=== PATIENT | male | born 1980 ===

== ENCOUNTER 2020-09-28 22:41 | Emergency (ER) | payer BC, SELFPAY ==
[2020-09-28 22:46] VITALS: BP 140/83; PULSE 93; RESP 20; TEMP 36.7; O2SAT 100; BMI 38.9
--- NOTE | 2020-09-28 23:05 | ECG_ITS ---
Test Reason : TINGLING Blood Pressure : / mmHG Vent. Rate : 085 BPM Atrial Rate : 085 BPM P-R Int : 160 ms QRS Dur : 096 ms QT Int : 350 ms P-R-T Axes : 013 040 021 degrees QTc Int : 416 ms Normal sinus rhythm Normal ECG When compared to the previous EKG of No significant changes seen Referred By: Page Allen Electronically Signed By:Anson Bowser
--- NOTE | 2020-09-28 23:05 | ED.GENADULT ---
HPI - General Adult General Chief complaint: General Medical Stated complaint: Tingling Time Seen by Provider: 09/28/20 23:01 Source: patient Mode of arrival: ambulatory History of Present Illness HPI narrative: This is a 40-year-old male who presents with acute onset bilateral numbness and tingling in a pants like distribution at approximately 10:15 p.m. this evening while watching TV with his . He denies any recent prodrome of fever, chills, trauma, chronic conditions of the lower back, and states that despite the sensation of tingling and numbness he was able ambulate without difficulty. He says that during this episode he looked down at the apple watch and noted that his heart rate was 120 but none eyes any chest pain or shortness of breath. He denies any recent medication dose changes or addition of medications. He does endorse that he has a remote history of anxiety and though there were some similar features he states that there was ?nothing else going on that he felt should have precipitated this reaction? and the new feature was the lower body numbness and tingling. Patient states that the symptoms have gradually improved since arrival and that he feels almost back to normal. Related Data Home Medications Medication Instructions Recorded Confirmed bupropion HCl 1 tab PO BID 09/29/20 09/29/20 syringe with needle [BD Tuberculin 09/29/20 09/29/20 Syringe] testosterone cypionate 0.331 ml IM QWEEK 09/29/20 09/29/20 Previous Rx's Medication Instructions Recorded nitrofurantoin monohyd/m-cryst 100 mg PO Q12H 5 Days #10 cap 09/29/20 [Macrobid] Allergies Allergy/AdvReac Type Severity Reaction Status Date / Time Sulfa (Sulfonamide Allergy Unknown HIVES Verified 09/28/20 22:52 Antibiotics) [SULFA (SULFONAMIDE ANTIBIOTICS)] Review of Systems Review of Systems: Pertinent positives and negatives as stated in HPI 10 point review of systems is otherwise negative. FORMERLY [facility], [facility] Past Medical History Source: nursing notes reviewed Social History Social History Smoking Status: Former smoker Use of substances other than those prescribed or required for medical reasons: No Advance Directives: No Advance Directives Information Provided: No Physical Exam Vital Signs: Vital Signs: Last Vital Signs Temp 98.1 F 09/28/20 22:46 Pulse 93 09/28/20 22:46 Resp 20 09/28/20 22:46 BP 140/83 H 09/28/20 22:46 Pulse Ox 100 09/28/20 22:46 Body Mass Index 38.9 VITAL SIGNS: Reviewed. GENERAL: Well developed, well nourished, in no acute distress. HEAD: Normocephalic/atraumatic EYES: PERRLA, EOMI OROPHARYNX: no oral lesions noted, posterior pharynx clear NECK: Supple, no adenopathy LUNGS: Normal breath sounds. No adventitious sounds or accessory muscle use. SpO2<100> CARDIOVASCULAR: Regular rate and rhythm without noted murmurs ABDOMEN: Soft, non-tender, non-distended with bowel sounds. NEUROLOGIC: Alert and oriented x 4. Strength and sensation to light touch were grossly intact x 4. Course Course Course Narrative: This is a 40-year-old male with history and clinical presentation most consistent with anxiety reaction and low/no clinical suspicion for cauda equina, spinal abscess and inconsistent with sciatica. Review of all investigations is negative for any acute findings other than a UTI. All results and findings were discussed with patient at bedside and on re-evaluation patient endorses that he has had complete resolution of the numbness and tingling into his bilateral lower extremities. He was discharged in stable condition with recommendations to follow-up with his primary care provider as well as receiving a prescription for the remaining course of antibiotics. Medical Decision Making Lab Data Result diagrams: 09/28/20 23:27 09/28/20 23:27 Labs: Lab Results 09/28/20 09/28/20 09/28/20 Range/Units 23:27 23:27 23:28 WBC 8.9 (4.8-10.8) X10*3/uL RBC 5.74 (4.60-5.80) X10*6/uL Hgb 16.0 (14.0-18.0) g/dl Hct 49.0 (42-52) % MCV 85.4 (80-98) fL MCH 27.9 (27.0-33.0) pg MCHC 32.7 (31.0-36.0) g/dl RDW 13.0 (11.0-16.0) % Plt Count 276 (160-400) X10*3/uL MPV 10.0 (9.4-12.4) fL Immature Gran % (Auto) 0.2 (0.0-0.4) % Neut % (Auto) 64.1 (45-73) % Lymph % (Auto) 26.3 (20-40) % [place] % (Auto) 7.5 (2-11) % Eos % (Auto) 1.6 (0-4) % Baso % (Auto) 0.3 (0-2) % Lymph # (Auto) 2.4 (1.2-4.9) X10*3/uL [place] # (Auto) 0.7 (0.1-1.2) X10*3/uL Eos # (Auto) 0.1 (0.0-0.4) X10*3/uL Baso # (Auto) 0.0 (0.0-0.2) X10*3/uL Abs Immat Gran (auto) 0.02 (0.00-0.03) X10*3/uL Absolute Neuts (auto) 5.7 (2.0-8.3) X10*3/uL Absolute Nucleated RBC 0.000 (0.0-0.012) X10*3/uL Nucleated RBC % (auto) 0.0 (0.0-0.2) /100WBC Sodium 140 (135-145) mmol/L Potassium 4.0 (3.3-5.1) mmol/L Chloride 103 (96-108) mmol/L Carbon Dioxide 24 (22-29) mmol/L Anion Gap 17 (12-20) BUN 9 (9-16) mg/dL Creatinine 1.07 (0.5-1.4) mg/dL Estim Creat Clear Calc 110.1 Estimated GFR > 60 Random Glucose 86 (60-115) mg/dL Calcium 8.9 (8.4-10.2) mg/dL Total Bilirubin 0.7 (0.0-1.0) mg/dL AST 26 (5-37) U/L ALT 61 H (0-40) U/L Alkaline Phosphatase 77 (39-117) U/L Total Protein 7.7 (6.5-8.0) g/dL Albumin 4.5 (3.5-5.0) g/dL TSH 1.45 (0.32-4.0) uIU/mL Urine Color YELLOW Urine Appearance CLEAR Urine pH 7.0 (5.0-8.0) Ur Specific [place] 1.010 (1.005-1.025) Urine Protein NEG (NEG-TRACE) MG/DL Urine Glucose (UA) NEG (NEG) MG/DL Urine Ketones NEG (NEG) MG/DL Urine Blood NEG (NEG) Urine Nitrite NEG (NEG) Ur Leukocyte Esterase 1+ H (NEG) Urine RBC 0 (0) /HPF Urine WBC 1-4 (0-4) /HPF Ur Squamous Epith Cells 2+ /LPF Urine Bacteria 1+ /LPF ECG Data Attestation: I personally reviewed and interpreted this ECG as follows: Prior ECG tracings: available for review (03/08/2018 no acute changes on comparison) Interpretation: Normal sinus rhythm, HR -85, no evidence of acute ischemia, OR/QRS/QTC is within normal limits. Discharge Plan Discharge Clinical Impression: Anxiety, Acute UTI Patient Disposition: Home, Self-Care Instructions: Urinary Tract Infection in Women (ED), Urinary Tract Infection in Men (ED), Anxiety (ED) Additional Instructions: 1. Please resume all home medications as prescribed. 2. You have been provided with a prescription for an antibiotic that should not interact with any other medications. 3. Please follow-up with your primary care provider for re-evaluation and follow-up urine cultures. Do not hesitate to return to the emergency department should you experience acute worsening of your symptoms. Prescriptions: New nitrofurantoin monohyd/m-cryst [Macrobid] 100 mg capsule 100 mg PO Q12H 5 Days Qty: 10 RF: 0 Referrals: Vin Segundo NP [Primary Care Provider] - 2 days (Re-evaluation after patient treated for UTI with Macrobid and suspected anxiety reaction. Urine cultures are pending.)
[2020-09-28 23:34] LABS: Basophils Percent Auto 0.3 % (0-2); Eosinophils Absolute Auto 0.1 X10*3/uL (0.0-0.4); Eosinophils Percent Auto 1.6 % (0-4); Imm Gran Abs Auto 0.02 X10*3/uL (0.00-0.03); Imm Gran Pct Auto 0.2 % (0.0-0.4); Lymphocytes Absolute Auto 2.4 X10*3/uL (1.2-4.9); Lymphocytes Percent Auto 26.3 % (20-40); MANUAL DIFF FLAG NO; Mean Corpuscular HGB Conc 32.7 g/dl (31.0-36.0); Mean Corpuscular Hemoglobin 27.9 pg (27.0-33.0); Mean Corpuscular Volume 85.4 fL (80-98); Monocytes Absolute Auto 0.7 X10*3/uL (0.1-1.2); Monocytes Percent Auto 7.5 % (2-11); Neutrophils Absolute Auto 5.7 X10*3/uL (2.0-8.3); Neutrophils Percent Auto 64.1 % (45-73); Platelet Count 276 X10*3/uL (160-400); Red Blood Count 5.74 X10*6/uL (4.60-5.80); White Blood Count 8.9 X10*3/uL (4.8-10.8)
[2020-09-28 23:38] LABS: Appearance Urine CLEAR; Color Urine YELLOW; Glucose Urine UA NEG (NEG); Leukocyte Esterase Urine 1+ (NEG); Nitrite Urine NEG (NEG); UACC Culture Trigger YES; Urine Blood NEG (NEG); Urine Ketones NEG (NEG); Urine Protein NEG (NEG-TRACE)
[2020-09-28 23:44] LABS: Bacteria Urine 1+ /LPF; RBC Urine 0 /HPF (0); Squamous Epithelial Cell Urine 2+ /LPF
[2020-09-28 23:59] LABS: Alanine Aminotransferase 61 U/L (0-40); Albumin Level 4.5 g/dL (3.5-5.0); Alkaline Phosphatase 77 U/L (39-117); Anion Gap 17 (12-20); Aspartate Amino Transferase 26 U/L (5-37); Bilirubin Total 0.7 mg/dL (0.0-1.0); Blood Urea Nitrogen 9 mg/dL (9-16); Calcium 8.9 mg/dL (8.4-10.2); Carbon Dioxide 24 mmol/L (22-29); Chloride 103 mmol/L (96-108); Creatinine Clr Calc Pharmacy 110.1; Estimated Glomerular Filt Rate > 60; Glucose Random 86 mg/dL (60-115); Sodium 140 mmol/L (135-145); Total Protein 7.7 g/dL (6.5-8.0)
[2020-09-29 00:31] LABS: Thyroid Stimulating Hormone 1.45 uIU/mL (0.32-4.0)
== END 2020-09-29 01:03 | disposition home or self-care (01) ==
PROVIDERS: Emergency Provider Student in an Organized Health Care Education/Training Program; PCP Nurse Practitioner Adult Health
DX: N39.0 Urinary tract infection, site not specified (principal); F41.9 Anxiety disorder, unspecified
CPT/HCPCS: 36415; 80053; 81001; 81003; 84443; 85025; 87086; 93005; 99283; 99284

== ENCOUNTER 2023-01-06 12:15 | Emergency (ER) | payer BC, SELFPAY ==
[2023-01-06 12:58] VITALS: BP 155/104; PULSE 93; RESP 18; TEMP 36.6; O2SAT 98; BMI 37.9
--- NOTE | 2023-01-06 13:06 | ED.NEUROSD ---
HPI - Neuro Symptoms/Deficit General Chief Complaint: Neuro Symptoms/Deficit Stated Complaint: L side numbness , migrane Related Data Home Medications Medication Instructions Recorded Confirmed bupropion HCl 150 mg tablet,12 hr 1 tab PO BID 09/29/20 09/29/20 sustained-release syringe with needle 1 mL 27 x 1/2 09/29/20 09/29/20 (BD Tuberculin Syringe) testosterone cypionate 200 mg/mL 0.331 ml IM QWEEK 09/29/20 09/29/20 intramuscular oil Previous Rx's Medication Instructions Recorded nitrofurantoin 100 mg PO Q12H 5 days #10 caps 09/29/20 monohydrate/macrocrystals 100 mg capsule (Macrobid) Allergies Allergy/AdvReac Type Severity Reaction Status Date / Time Sulfa (Sulfonamide Allergy Unknown HIVES Verified 01/06/23 12:58 Antibiotics) [SULFA (SULFONAMIDE ANTIBIOTICS)] Physical Exam Vital Signs: Vital Signs: Last Vital Signs Temp 97.8 F 01/06/23 12:58 Pulse 93 01/06/23 12:58 Resp 18 01/06/23 12:58 BP 155/104 H 01/06/23 12:58 Pulse Ox 98 01/06/23 12:58 O2 Del Method Room Air 01/06/23 12:58 BMI result Body Mass Index 37.9 Course Course Course Narrative: This is an RME: Additional HPI, ROS, PE not included below will be deferred to primary provider. 42-year-old male, with a past medical history of migraines, presenting to the emergency department with migraine which started today at 10:00AM. Patient states that he felt numbness and tingling on the left side of his body. He states that the numbness and tingling has since resolved reports that his left foot feels heavy. Patient states that this is different than his typical migraines. Patient is neurologically intact. No facial droop, or focal deficits. Mildly hypertensive at 155/104, all other vital signs within normal limits. Given atypical presentation of usual migraines will order head CT, basic labs. Given he is within the 4 hour window will order head CT per stroke protocol. Discharge Plan Discharge Prescriptions: No Action bupropion HCl 150 mg tablet sustained-release 12 hr 1 tab PO BID testosterone cypionate 200 mg/mL oil 0.331 ml IM QWEEK (DME) BD Tuberculin Syringe 1 mL 27 x 1/2 syringe MISCELLANEOUS QWEEK nitrofurantoin monohyd/m-cryst [Macrobid] 100 mg capsule 100 mg PO Q12H 5 Days Qty: 10 0RF Rx Instructions: must administer with a meal/food
[2023-01-06 13:41] VITALS: BP 151/88; PULSE 85; TEMP 36.4; O2SAT 98
--- NOTE | 2023-01-06 14:45 | ED.NEUROSD ---
HPI - Neuro Symptoms/Deficit General Chief Complaint: Neuro Symptoms/Deficit Stated Complaint: L side numbness , migrane Time Seen by Provider: 01/06/23 13:47 History of Present Illness HPI Narrative: Patient is 42 years old with a history of complex migraines in the past. Presented today with having ocular or worse. Patient claims they were like A C pattern that is in the visual field. It did not go away with closing 1 eye or the other. It is very similar to previous bouts. The bright C pattern gradually goes away. Patient then noticed some tingling sensation on the left side of his body. This is new. Patient denies having similar symptoms in the past. There is no focal weakness. There is no chest pain there is no diaphoresis. There is no difficulty with speech. Over time this has resolved. Patient presents to the ED because he was worried about the numbness. He has no history of diabetes, hypertension, mi, family history of NC. patient is from home. No history of smoking. Related Data Home Medications Medication Instructions Recorded Confirmed bupropion HCl 150 mg tablet,12 hr 1 tab PO BID 09/29/20 09/29/20 sustained-release syringe with needle 1 mL 27 x 1/2 09/29/20 09/29/20 (BD Tuberculin Syringe) testosterone cypionate 200 mg/mL 0.331 ml IM QWEEK 09/29/20 09/29/20 intramuscular oil Previous Rx's Medication Instructions Recorded nitrofurantoin 100 mg PO Q12H 5 days #10 caps 09/29/20 monohydrate/macrocrystals 100 mg capsule (Macrobid) Allergies Allergy/AdvReac Type Severity Reaction Status Date / Time Sulfa (Sulfonamide Allergy Unknown HIVES Verified 01/06/23 12:58 Antibiotics) [SULFA (SULFONAMIDE ANTIBIOTICS)] Review of Systems Review of Systems: No fever no chills no chest pain or shortness of breath. Positive tingling to the left side PMFSH Past Medical History Attestation statement: The following information was validated with the patient. Social History Social History Advance Directives: No Physical Exam Vital Signs: Vital Signs: Last Vital Signs Temp 97.6 F 01/06/23 13:41 Pulse 85 01/06/23 13:41 Resp 18 01/06/23 12:58 BP 151/88 H 01/06/23 13:41 Pulse Ox 98 01/06/23 13:41 O2 Del Method Room Air 01/06/23 13:41 BMI result Body Mass Index 37.9 Appearance: Alert. Oriented X3. No acute distress. Eyes: Pupils equal, round and reactive to light. ENT: Pharynx normal. Neck: Normal inspection. Neck supple. No lymph nodes noted. No crepitus CVS: Normal heart rate and rhythm. Pulses normal. Normal S1 and S2 Respiratory: No respiratory distress. Breath sounds normal. No Wheezing. No rales Abdomen: Soft and nontender. No rigidity. No distention. good BS x4 Skin: Skin warm and dry. Normal skin color. Normal skin turgor. Extremities: No lower extremity edema. Neurovascular intact to all extremities. No Lacerations. No Rash Neuro: Oriented X 3. No motor deficit. No sensory deficit. Moving all extermities. No slurred speech. Cranial nerves 2-12 intact. Rapid alternating movement intact. Medical Decision Making Medical Decision Making [facility] Narrative: Patient well appearing no acute distress. Neurologically intact. Question symptoms secondary to ocular migraine. CT scan of the head was negative. Patient has a history of migraine. Sugar was normal no evidence for hypoglycemia. Electrolytes unremarkable. Patient is born by logically a female. Currently undergoing testosterone treatment. Currently in stable condition. Will discharge home. Differential Diagnosis Differential Diagnoses: The differential diagnosis associated with the presentation includes Migraine Lab Data [facility] Lab Attestation statement: I reviewed the patient's lab results. 01/06/23 13:13 01/06/23 13:13 Labs: Lab Results 01/06/23 01/06/23 01/06/23 Range/Units 13:13 13:13 13:19 WBC 8.2 (4.8-10.8) X10*3/uL RBC 6.01 H (4.60-5.80) X10*6/uL Hgb 16.8 (14.0-18.0) g/dl Hct 51.0 (42.0-52.0) % MCV 84.9 (80.0-98.0) fL MCH 28.0 (27.0-33.0) pg MCHC 32.9 (31.0-36.0) g/dl RDW 12.7 (11.0-16.0) % Plt Count 286 (160-400) X10*3/uL MPV 9.9 (9.4-12.4) fL Immature Gran % (Auto) 0.4 (0.0-0.4) % Neut % (Auto) 67.7 (45-73) % Lymph % (Auto) 23.3 (20-40) % [place] % (Auto) 6.5 (2-11) % Eos % (Auto) 1.6 (0-4) % Baso % (Auto) 0.5 (0-2) % Lymph # (Auto) 1.9 (1.2-4.9) X10*3/uL [place] # (Auto) 0.5 (0.1-1.2) X10*3/uL Eos # (Auto) 0.1 (0.0-0.4) X10*3/uL Baso # (Auto) 0.0 (0.0-0.2) X10*3/uL Abs Immat Gran (auto) 0.03 (0.00-0.03) X10*3/uL Absolute Neuts (auto) 5.5 (2.0-8.3) x10*3/uL Absolute Nucleated RBC 0.000 (0.0-0.012) X10*3/uL Nucleated RBC % (auto) 0.0 (0.0-0.2) /100WBC PT 11.0 (10.0-13.1) SEC INR 1.0 (0.9-1.1) APTT 35.7 (26.0-36.4) SEC Sodium 143 (135-145) mmol/L Potassium 4.0 (3.3-5.1) mmol/L Chloride 105 (96-108) mmol/L Carbon Dioxide 28 (22-29) mmol/L Anion Gap 14 (12-20) BUN 11 (9-16) mg/dL Creatinine 1.01 (0.5-1.4) mg/dL Estim Creat Clear Calc 112.6 Estimated GFR > 60 Random Glucose 84 (60-115) mg/dL Calcium 10.3 H D (8.4-10.2) mg/dL Magnesium 1.9 (1.6-2.6) mg/dL Total Bilirubin 0.7 (0.0-1.0) mg/dL Direct Bilirubin 0.2 (0.0-0.5) mg/dL AST 25 (5-37) U/L ALT 55 H (0-40) U/L Alkaline Phosphatase 69 (39-117) U/L Total Protein 8.2 H (6.5-8.0) g/dL Albumin 4.4 (3.5-5.0) g/dL Radiology Impression Discussion of test interpretation with radiology: I discussed test interpretation with the radiologist and I have reviewed the radiologist's reading. Radiologist Impression: CT scan of the head was grossly negative Discharge Plan Discharge Clinical Impression: Migraine Patient Disposition: Home, Self-Care Instructions: Migraine Headache (ED) Prescriptions: No Action bupropion HCl 150 mg tablet sustained-release 12 hr 1 tab PO BID testosterone cypionate 200 mg/mL oil 0.331 ml IM QWEEK (DME) BD Tuberculin Syringe 1 mL 27 x 1/2 syringe MISCELLANEOUS QWEEK nitrofurantoin monohyd/m-cryst [Macrobid] 100 mg capsule 100 mg PO Q12H 5 Days Qty: 10 0RF Rx Instructions: must administer with a meal/food Referrals: Elba Hernandez MD [Physician] - 01/10/23 Vin Segundo NP [Primary Care Provider] -
== END 2023-01-06 15:16 | disposition home or self-care (01) ==
PROVIDERS: Emergency Provider Emergency Medicine Emergency Medical Services; PCP Nurse Practitioner Adult Health
DX: G43.909 Migraine, unspecified, not intractable, without status migrainosus (principal); R20.2 Paresthesia of skin; H53.8 Other visual disturbances; Z79.899 Other long term (current) drug therapy
CPT/HCPCS: 36415; 70450; 80048; 80076; 83735; 85025; 85610; 85730; 99283; 99284